=== PATIENT | female | born 1995 | race Caucasian/White ===

== ENCOUNTER 2023-05-31 11:20 | Outpatient (CLI) | payer BC ==
[2023-05-31 12:35] LABS: Protein/Creatinine Ratio,Urine 0.111
[2023-05-31 12:52] LABS: Appearance,Urine Cloudy (Clear); Bacteria,Urine Many /hpf; Bilirubin,Urine Negative (Negative); Blood,Urine Negative (Negative); Color,Urine Yellow; Glucose,Urine (UA) Negative (Negative); Ketones,Urine Negative (Negative); Leukocyte Esterase,Urine Large (Negative); Mucus,Urine Moderate /hpf; Nitrite,Urine Negative (Negative); PH, Urine 6.5 (5.0-8.0); Protein,Urine Trace (Negative); Specific Gravity,Urine 1.018 (1.001-1.035); Squamous Epithelial Cell,Urine 10 /hpf (0-4); Urobilinogen,Urine <2.0 mg/dL (<2.0); WBC,Urine 9 /hpf (0-5)
[2023-05-31 12:59] LABS: Basophils % (A) 0 %; Eosinophils # (A) 0.1 k/uL (0-0.7); Eosinophils % (A) 1 %; HCT 29.6 % (34.0-46.0); HGB 9.3 gm/dL (11.4-16.0); Hypochromasia Marked; Lymphocytes # (A) 1.7 k/uL (1.0-4.8); Lymphocytes % (A) 19 %; MCH 24.4 pg (25.0-35.0); MCHC 31.6 g/dL (31.0-37.0); MCV 77.3 fL (80.0-100.0); Mean Platelet Volume 7.8; Microcytosis Slight; Monocytes # (A) 0.5 k/uL (0-1.0); Monocytes % (A) 5 %; Neutrophils # (A) 6.7 k/uL (1.3-7.7); Neutrophils % (A) 74 %; Platelet Count 264 k/uL (150-450); Poikilocytosis Slight; RBC 3.83 m/uL (3.80-5.40); RDW 15.5 % (11.5-15.5)
[2023-05-31 13:16] LABS: ALT 16 U/L (4-34); AST 22 U/L (14-36); African American GFR (CKD) >90 (>60 ml/min/1.73 sqM); Blood Urea Nitrogen 6 mg/dL (7-17); LDH 230 U/L (120-246); Non-African American GFR(CKD) >90 (>60 ml/min/1.73 sqM); Uric Acid 5.5 mg/dL (3.7-7.4)
[2023-05-31 13:58] VITALS: BP 137/100; PULSE 108; RESP 16; TEMP 98.1
--- NOTE | 2023-07-05 17:54 | P.MSEPDOC ---
Presenting Problems - Arrival Data Date of Arrival on Unit: 05/31/23 Time of Arrival on Unit: 11:33 Mode of Transport: Ambulatory - Complaint OB-Reason for Admission/Chief Complaint: Headache, PIH, Elevated Blood Pressure Comment: pt arrived c/o headache yesterday and pt states her b/p was taken at home and elevated so pt called the office and was told to go to the Triage. PIH orders received from Dr Wright and serial B/P obtained Medical History - Information : 2 Para: 0 Term: 0 : 0 Abortions: Spontaneous or Elective: 0 Number of Living Children: 0 - Gestational Age Gestational Age by VILMA (wks/days): 36 Weeks and 6 Days Review of Systems - Review of Systems Constitutional: No problems Breast: No problems ENT: No problems Cardiovascular: No problems Respiratory: No problems Gastrointestinal: No problems Genitourinary: No problems Musculoskeletal: No problems Neurological: No problems Skin: No problems Vital Signs - Temperature Temperature: 98.1 F Temperature Source: Oral - Pulse Right Brachial Pulse Rate: 108 Pulse Assessment Method: Automatic Cuff - Respirations Respiratory Rate: 16 Oxygen Delivery Method: Room Air O2 Sat by Pulse Oximetry: 98 - Blood Pressure Right Arm Blood Pressure: 137/100 Blood Pressure Mean: 112 Blood Pressure Source: Automatic Cuff Medical Screen Scoring - Cervical Exam Dilation (cm): 1 Effacement (%): 50 Station: -3 Membranes: Intact - Uterine Contractions Frequency From (mins): 0 Intensity: Mild - Assessment - Baby A Baseline FHR: 130 Heart Rate - NICHD Category: Category I (Normal) NST: Reactive Physician Notification - Physician Notified Physician Notified Date: 05/31/23 Physician Notified Time: 11:47 Physician: dr wright New Order Received: Yes - Notification Comment Comment: serial b/p and PIH labs and u/a NST. SERIAL B/P 145/87 140/84, 1 . reactive NST and lab results back and WNL. Dr. Wright called with results and orders received to discharge hoe and have pt f/u with her in the office tomorrow Maternal Triage Index - Non-Urgent/Priority 4 Non-Urgent Priority 4: Yes Criteria Met for Priority 4: pt arrived c/o headache and states b/p was elevated at home Disposition - Disposition OB Disposition: Discharge to home Discharge Date: 05/31/23 Discharge Time: 13:38 I agree with the RN Medical Screening Exam: Yes Case reviewed; plan agreed upon as documented in EMR&OBIX.: Yes Diagnosis: RELATED CONDITIONS, UNSPECIFIED, SECOND TRIMESTER
== END 2023-05-31 13:38 | disposition home or self-care (01) ==
LOC: FBPOP 11:20
PROVIDERS: ATTEND Obstetrics & Gynecology Obstetrics
DX: O26.892 Other specified pregnancy related conditions, second trimester (principal); O13.4 Gestational [pregnancy-induced] hypertension without significant proteinuria, complicating childbirth; R51.9 Headache, unspecified; Z37.9 Outcome of delivery, unspecified; Z88.8 Allergy status to other drugs, medicaments and biological substances; Z3A.36 36 weeks gestation of pregnancy; Z79.82 Long term (current) use of aspirin
CPT/HCPCS: 59025; 81001; 82565; 82570; 83615; 84156; 84450; 84460; 84520; 84550; 85025; 99215

== ENCOUNTER 2023-06-14 05:54 | Inpatient (IN) | payer BC ==
[2023-06-14] MEDS ORDERED: TERBUTALINE 1 MG/ML VIAL SQ PRN (06:23)
[2023-06-14] MEDS ORDERED: OXYTOCIN 10 UNIT/ML 1 ML VIAL IM PRN ×2 (06:23→20:55)
[2023-06-14] MEDS ORDERED: miSOPROStoL 200 MCG TAB PO PRN ×2 (06:23→20:55)
[2023-06-14] MEDS ORDERED: TRANEXAMIC 1,000 MG/100ML-NACL 1,000 MG in EMPTY BAG 1 BAG IV PRN ×2 (06:23→20:55)
[2023-06-14] MEDS ORDERED: CARBOPROST TROMETHAMINE 250 MCG/ML 1 ML AMP IM PRN ×2 (06:23→20:55)
[2023-06-14] MEDS ORDERED: METHYLERGONOVINE 0.2 MG/ML 1 ML AMP IM PRN ×2 (06:23→20:55)
[2023-06-14] MEDS ORDERED: LIDOCAINE 0.5% (PF) 5 MG/ML (50 ML SDV) SQ PRN (06:23)
[2023-06-14] MEDS ORDERED: OXYTOCIN 30 UNITS/500 ML NS 30 UNIT in SALINE 1 500ML.BAG IV SCH ×2 (06:30→21:00)
[2023-06-14] MEDS: LACTATED RINGERS 1,000 ML IV SCH (06:35)
[2023-06-14 06:40] LABS: Anisocytosis Slight; Basophils # (A) 0.1 k/uL (0-0.2); Basophils % (A) 1 %; Eosinophils # (A) 0.1 k/uL (0-0.7); Eosinophils % (A) 1 %; HCT 30.4 % (34.0-46.0); HGB 8.7 gm/dL (11.4-16.0); Hypochromasia Moderate; Lymphocytes % (A) 30 %; MCH 21.1 pg (25.0-35.0); MCHC 28.5 g/dL (31.0-37.0); MCV 74.2 fL (80.0-100.0); Mean Platelet Volume 8.2; Microcytosis Slight; Monocytes # (A) 0.6 k/uL (0-1.0); Monocytes % (A) 6 %; Neutrophils % (A) 60 %; Platelet Count 289 k/uL (150-450); RDW 16.2 % (11.5-15.5)
[2023-06-14] MEDS ORDERED: SODIUM CHLORIDE 0.9% 100 ML BAG ONE (13:16)
[2023-06-14] MEDS ORDERED: fentaNYL (PF) 50 MCG/ML 5 ML AMP ONE (13:16)
[2023-06-14] MEDS ORDERED: ROPIVACAINE 5 MG/ML 20 ML AMPULE ONE (13:16)
[2023-06-14 20:12] LABS: Basophils % (A) 0 %; Eosinophils % (A) 0 %; HCT 32.5 % (34.0-46.0); HGB 9.9 gm/dL (11.4-16.0); Hypochromasia Marked; Lymphocytes # (A) 1.9 k/uL (1.0-4.8); Lymphocytes % (A) 13 %; MCH 23.1 pg (25.0-35.0); MCHC 30.3 g/dL (31.0-37.0); MCV 76.2 fL (80.0-100.0); Mean Platelet Volume 8.7; Microcytosis Slight; Monocytes # (A) 0.7 k/uL (0-1.0); Monocytes % (A) 5 %; Neutrophils # (A) 12.1 k/uL (1.3-7.7); Neutrophils % (A) 81 %; Platelet Count 253 k/uL (150-450); RBC 4.27 m/uL (3.80-5.40); RDW 15.8 % (11.5-15.5); WBC 14.9 k/uL (3.8-10.6)
[2023-06-14 20:37] LABS: ALT 16 U/L (4-34); AST 24 U/L (14-36); African American GFR (CKD) >90 (>60 ml/min/1.73 sqM); Blood Urea Nitrogen 11 mg/dL (7-17); LDH 235 U/L (120-246); Magnesium 1.4 mg/dL (1.6-2.3); Non-African American GFR(CKD) >90 (>60 ml/min/1.73 sqM); Uric Acid 5.9 mg/dL (3.7-7.4)
[2023-06-14 20:50] LABS: Appearance,Urine Clear (Clear); Bacteria,Urine Rare /hpf; Bilirubin,Urine Negative (Negative); Blood,Urine Moderate (Negative); Color,Urine Yellow; Glucose,Urine (UA) Negative (Negative); Ketones,Urine 2+ (Negative); Leukocyte Esterase,Urine Small (Negative); Mucus,Urine Occasional /hpf; Nitrite,Urine Negative (Negative); PH, Urine 6.5 (5.0-8.0); Protein,Urine 1+ (Negative); RBC,Urine 168 /hpf (0-5); Specific Gravity,Urine 1.017 (1.001-1.035); Squamous Epithelial Cell,Urine 3 /hpf (0-4); Transitional Epi Cells,Urine <1 /hpf (0-1); Urobilinogen,Urine <2.0 mg/dL (<2.0); WBC,Urine 7 /hpf (0-5)
[2023-06-14 20:54] LABS: INR 0.9 (<1.2); Partial Thromboplastin Time 22.3 sec (22.0-30.0); Prothrombin Time 9.6 sec (9.0-12.0)
[2023-06-14] MEDS ORDERED: CITRIC ACID-SODIUM CITRATE 15 ML CUP PO ONE (20:55)
[2023-06-14 20:56] LABS: Creatinine,Urine Random 175.3 mg/dL; Protein/Creatinine Ratio,Urine 0.331
[2023-06-14] MEDS ORDERED: CLINDAMYCIN 900 MG in DEXTROSE 5% IN WATER 50 ML IVPB ONE ×2 (21:04)
[2023-06-14] MEDS ORDERED: GENTAMICIN 400 MG in SODIUM CHLORIDE 0.9% 100 ML IVPB ONE (21:04)
[2023-06-14] MEDS ORDERED: MORPHINE SULFATE (PF) 0.3 MG/0.3 ML SYR ONE (21:17)
[2023-06-14] MEDS ORDERED: NALBUPHINE 10 MG/ML (10 ML MDV) ONE (21:17)
[2023-06-14] MEDS ORDERED: OXYTOCIN 30 UNITS/500 ML NS BAG IV ONE (21:17)
[2023-06-14] MEDS ORDERED: ONDANSETRON 4 MG/2 ML VIAL ONE (21:17)
[2023-06-14] MEDS ORDERED: ePHEDrine 50 MG/ML 1 ML VIAL ONE (21:17)
[2023-06-14] MEDS ORDERED: fentaNYL (PF) 50 MCG/ML 2 ML AMP ONE (21:17)
--- NOTE | 2023-06-14 21:56 | P.OP ---
Date of Procedure: 06/14/23 Preoperative Diagnosis: IUP at 38-6/7 weeks, arrest of descent, cervical swelling, suspected malposition Postoperative Diagnosis: Same Procedure(s) Performed: Primary low transverse section Anesthesia: epidural Surgeon: Shannan Wright Completion Supervisor #1: Karli Grayson Estimated Blood Loss (ml): 482 IV fluids (ml): 700 Urine output (ml): 50 Pathology: other (Placenta) Condition: stable Disposition: observation Indications for Procedure: 27-year-old 1 para 0 that was admitted this morning for induction of labor secondary to renal pyelectasis and mild ventriculomegaly. Patient was seen through maternal- medicine with no further recommendations. Patient was admitted and Pitocin induction of labor was begun. Patient underwent amniotomy clear fluid was obtained. Patient pressed to labor eventually becoming uncomfortable requesting epidural. Patient progressed to 7 stall in for a short bit eventually progressing to 9. On examination approximate half an hour after she was noted to be 9 cm cervix was noted to be significantly swollen and 6 cm in size. Anterior lip was noted to be significantly swollen. At that time malposition was discussed with patient and patient's . C- section was discussed questions were answered patient states understanding anesthesia was notified. Operative Findings: Viable female delivered at 2128, weight of 8 lbs. 8 oz., Apgars of 9 and 9 at one and 5 minutes respectively. Normal uterus tubes and ovaries were appreciated Description of Procedure: The patient was prepped and draped in the usual fashion after epidural anesthesia was found be adequate.. A Pfannenstiel incision was made and extended of the abdominal cavity without difficulty. The bladder peritoneum was elevated and incised and reflected distally. A 2 cm incision was made in the transverse plane of the lower uterine segment to enter the uterus at which time clear fluid was noted. The incision was extended in both directions bluntly. The head was encountered within the field and delivered up and through the incision where the nose and mouth were thoroughly suctioned. Remainder of the infant was delivered onto the surgical field where the cord was doubly clamped, cut, and the was passed for resuscitative measures with weight and Apgars as noted above. The placenta was delivered manually, intact, and was grossly normal with a grossly normal three-vessel cord. The uterus was exteriorized and the interior cavity of the uterus swept of any remaining placental and membranous fragments with a laparotomy sponge. The margins of the incision were grasped with Friend clamps and the incision closed in 2 layers. First layer was a running locking layer of 0 Vicryl from margin to margin followed by a second layer of imbricating 0 Vicryl from margin to margin. Any small points of bleeding were then made hemostatic with the Bovie. Once hemostasis was a chieved, the posterior cul-de-sac was suctioned with a guard and the uterine and ovarian findings are as noted above. The uterus was replaced within the abdominal cavity and the gutters swept of any remaining blood fluid or clot. The incision was again reexamined and hemostasis was noted to be excellent. Any small point of bleeding were made hemostatic with the Bovie. Once hemostasis was achieved the parietal peritoneum was loosely reapproximated. The layer of muscles were examined and made hemostatic with the Bovie. Attention was then turned to the fascia which was closed with 2 running stitches of 0 Vicryl proceeding from the lateral margins to the midpoint. The subcutaneous tissues were irrigated, made hemostatic with the Bovie, and reapproximated with a running stitch of 30 Vicryl. The skin was reapproximated with 4-0 Vicryl. Estimated blood loss for the case was approximately 482 mL. All sponge instrument and needle counts are correct. There were no complications. The patient tolerated the procedure well and proceeded to the recovery room in stable condition. Both mother and are resting comfortably in recovery.
--- NOTE | 2023-06-14 22:00 | P.HPOB ---
History of Present Illness H&P Date: 06/14/23 Chief Complaint: IUP 38 6/7, gestational HTN, ventriculomegaly 27 yo at 38 6/7 weeks that presents for induction of labor. She has been receiving routine care with myself, complicated by ventriculomegaly, mild, in addition renal pyelectasis, and marginal cord insertion was noted on ultrasound. Patient did see maternal medicine. Extensive counseling was completed, they offered MRI for which they declined. Continued growth ultrasounds were completed in the office with continued mild ventriculomegaly appreciated. Patient has had an occasional elevated blood pressure 140s over 80s, negative pre-eclampsia workup. Patient was then diagnosed with gestational hypertension. Negative pre-eclampsia workup. Patient denies signs or symptoms of preeclampsia today. She notes good movement denies contractions loss of fluid or vaginal bleeding. On bloodwork patient is a blood type of O+, rubella status nonimmune, hepatitis B surface antigen negative, HIV negative, RPR nonreactive, group beta strep culture was negative. Review of Systems Constitutional: Denies chills, Denies fatigue, Denies fever Ears, nose, mouth and throat: Denies headache Cardiovascular: Reports leg edema Respiratory: Denies dyspnea Gastrointestinal: Denies constipation, Denies diarrhea, Denies nausea, Denies vomiting Genitourinary: Reports Past Medical History Additional Past Medical History / Comment(s): occasional high blood pressures with History of Any Multi-Drug Resistant Organisms: None Reported Additional Past Surgical History / Comment(s): Right arm Past Anesthesia/Blood Transfusion Reactions: No Reported Reaction Past Psychological History: Anxiety, Depression Smoking Status: Never smoker Past Drug Use History: None Reported Medications and Allergies Home Medications Medication Instructions Recorded Confirmed Type Aspirin [Adult Low Dose Aspirin EC] 81 mg PO DAILY 05/31/23 06/14/23 History Ferrous Sulfate, Dried [Iron] 1 tab PO DAILY 05/31/23 06/14/23 History Vit No.179/Iron/Folic 1 tab PO DAILY 05/31/23 06/14/23 History [ Tablet] Allergies Allergy/AdvReac Type Severity Reaction Status Date / Time Cephalosporins Allergy Rash/Hives Verified 05/31/23 11:50 Exam Osteopathic Statement: *. No significant issues noted on an osteopathic structural exam other than those noted in the History and Physical/Consult. 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 heart tones are noted to be category 1 and she is harris every 5 minutes. This is a late entry from this morning. Results Result Diagrams: 06/14/23 18:58 06/14/23 18:58 Abnormal Lab Results - Last 24 Hours (Table) 06/14/23 Range/Units 06:21 Hgb 8.7 L (11.4-16.0) gm/dL Hct 30.4 L (34.0-46.0) % MCV 74.2 L (80.0-100.0) fL MCH 21.1 L (25.0-35.0) pg MCHC 28.5 L (31.0-37.0) g/dL RDW 16.2 H (11.5-15.5) % Assessment and Plan (1) Term Current Visit: Yes Status: Acute Code(s): Z34.90 - ENCNTR FOR SUPRVSN OF NORMAL , UNSP, UNSP TRIMESTER SNOMED Code(s): 42787811 (2) Gestational HTN Current Visit: Yes Status: Acute Code(s): O13.9 - GESTATIONAL HTN W/O SIGNIFICANT PROTEINURIA, UNSP TRIMESTER SNOMED Code(s): 54725397 (3) Ventriculomegaly of brain on ultrasound Current Visit: Yes Status: Acute Code(s): PVV1998 - SNOMED Code(s): 764899559657630 (4) Pyelectasis of fetus on ultrasound Current Visit: Yes Status: Acute Code(s): O35.EXX0 - MAT CARE OTHER ABNLT AND DAMAGE, ANOMAL, UNSP SNOMED Code(s): 827189011 (5) Marginal insertion of umbilical cord Current Visit: Yes Status: Acute Code(s): [id number] - SNOMED Code(s): 53235327 Plan: 27-year-old 1 para 0 at 38-6/7 weeks that presents for induction of labor secondary to gestational hypertension, marginal cord insertion, mild ventriculomegaly, renal pyelectasis Patient was counseled on options for analgesia including Stadol, nitrous, epidural. Patient states understanding and will consider. Pitocin augmentation is begun per hospital protocol. MFM consult on chart for pediatric review.
[2023-06-14] MEDS ORDERED: diphenhydrAMINE 25 MG CAP PO PRN (22:09)
[2023-06-14] MEDS ORDERED: ZOLPIDEM 5 MG TAB PO PRN (22:09)
[2023-06-14] MEDS ORDERED: ONDANSETRON 4 MG/2 ML VIAL IVP PRN (22:09)
[2023-06-14] MEDS ORDERED: METOCLOPRAMIDE 5 MG/ML 2 ML VIAL IVP PRN (22:09)
[2023-06-14] MEDS ORDERED: diphenhydrAMINE 50 MG CAP PO PRN (22:09)
[2023-06-14] MEDS ORDERED: diphenhydrAMINE 50 MG/ML 1 ML VIAL IVP PRN ×2 (22:09)
[2023-06-14] MEDS ORDERED: NALOXONE 0.4 MG/ML 1 ML VIAL IV PRN (22:09)
[2023-06-14] MEDS ORDERED: SIMETHICONE 80 MG CHEWABLE PO PRN (22:09)
[2023-06-14] MEDS: ACETAMINOPHEN IV (For NPO) 1,000 MG in EMPTY BAG 1 BAG IVPB SCH (22:47)
[2023-06-15] MEDS: IBUPROFEN IV 800 MG in SODIUM CHLORIDE 0.9% 250 ML IV SCH ×4 (01:34→17:03)
[2023-06-15] MEDS: LACTATED RINGERS 1,000 ML IV SCH ×5 (03:56→17:02)
[2023-06-15] MEDS: ACETAMINOPHEN TAB 500 MG TAB PO SCH ×4 (03:58→17:47)
[2023-06-15] MEDS: IBUPROFEN 600 MG TAB PO SCH ×4 (03:59→20:32)
[2023-06-15] MEDS: ACETAMINOPHEN IV (For NPO) 1,000 MG in EMPTY BAG 1 BAG IVPB SCH (05:05)
[2023-06-15 05:12] LABS: Anisocytosis Slight; Basophils % (A) 0 %; Eosinophils # (A) 0.1 k/uL (0-0.7); Eosinophils % (A) 1 %; HCT 28.5 % (34.0-46.0); HGB 8.8 gm/dL (11.4-16.0); Hypochromasia Marked; Lymphocytes # (A) 1.7 k/uL (1.0-4.8); Lymphocytes % (A) 11 %; MCH 23.5 pg (25.0-35.0); MCHC 30.9 g/dL (31.0-37.0); MCV 76.2 fL (80.0-100.0); Mean Platelet Volume 8.8; Microcytosis Slight; Monocytes # (A) 0.7 k/uL (0-1.0); Monocytes % (A) 5 %; Neutrophils # (A) 12.9 k/uL (1.3-7.7); Neutrophils % (A) 83 %; Platelet Count 255 k/uL (150-450); RBC 3.74 m/uL (3.80-5.40); RDW 16.3 % (11.5-15.5); WBC 15.6 k/uL (3.8-10.6)
[2023-06-15] MEDS: PRENATAL VIT-IRON-FOLIC ACID 1 EACH TABLET PO SCH (08:41)
[2023-06-15] MEDS: SENNOSIDES-DOCUSATE SODIUM 1 EACH TAB PO SCH ×2 (08:41→20:33)
--- NOTE | 2023-06-15 10:05 | P.PNOBGPC ---
Subjective - Subjective Principal diagnosis: POD 1 LTCS, cervical swelling and arrest of descent Interval history: Patient is doing well this am. she states pain is well controlled. she denies nausea or vomiting, and is tolerating a regular diet. locia is minimal. she is Breast feeding. BP were good overnight and this am. she did have some slightly elevated BP throughout labor, no s/s of pre eclampsia. she has had a small spontaneous void since gabriel was discontinued around 5 am. Patient reports: Reports appetite normal, Reports voiding normally, Reports pain well controlled, Reports ambulating normally [place]: doing well Objective - Vital Signs Latest vital signs: Vital Signs Temp Pulse Resp BP Pulse Ox 06/15/23 08:00 97.8 F 88 16 127/86 06/15/23 04:00 98.0 F 91 15 115/75 98 06/15/23 00:00 97.3 F L 111 H 16 124/58 100 06/14/23 23:30 111 H 16 148/64 97 06/14/23 23:00 97.3 F L 108 H 16 151/88 100 06/14/23 22:45 98.3 F 127 H 16 147/65 99 06/14/23 22:30 98.3 F 123 H 16 141/82 98 06/14/23 22:15 98.8 F 122 H 16 118/51 99 06/14/23 22:00 98.8 F 111 H 16 156/82 99 Intake and Output 06/14/23 06/15/23 06/15/23 22:59 06:59 14:59 Intake Total 960 960 Output Total 483 1137 300 Balance 477 -177 -300 Intake: Oral 960 960 Output: Urine 900 300 Uretheral (Gabriel) 400 Estimated Blood Loss 483 Output, Quantitative 237 Blood Loss Other: Voiding Method Indwelling Catheter Indwelling Catheter - Exam Extremities: Present: normal, edema Abdomen: Present: normal appearance Incision: Present: normal, intact Uterus: Present: normal, firm - Labs Labs: Abnormal Lab Results - Last 24 Hours (Table) 06/14/23 06/14/23 06/14/23 Range/Units 18:58 18:58 18:58 WBC 14.9 H (3.8-10.6) k/uL RBC (3.80-5.40) m/uL Hgb 9.9 L (11.4-16.0) gm/dL Hct 32.5 L (34.0-46.0) % MCV 76.2 L (80.0-100.0) fL MCH 23.1 L (25.0-35.0) pg MCHC 30.3 L (31.0-37.0) g/dL RDW 15.8 H (11.5-15.5) % Neutrophils # 12.1 H (1.3-7.7) k/uL Fibrinogen 536 H (200-500) mg/dL Magnesium 1.4 L (1.6-2.3) mg/dL Urine Protein (Negative) Urine Ketones (Negative) Urine Blood (Negative) Ur Leukocyte Esterase (Negative) Urine RBC (0-5) /hpf Urine WBC (0-5) /hpf Urine Bacteria (None) /hpf Urine Mucus (None) /hpf 06/14/23 06/15/23 Range/Units 19:39 04:58 WBC 15.6 H (3.8-10.6) k/uL RBC 3.74 L (3.80-5.40) m/uL Hgb 8.8 L (11.4-16.0) gm/dL Hct 28.5 L (34.0-46.0) % MCV 76.2 L (80.0-100.0) fL MCH 23.5 L (25.0-35.0) pg MCHC 30.9 L (31.0-37.0) g/dL RDW 16.3 H (11.5-15.5) % Neutrophils # 12.9 H (1.3-7.7) k/uL Fibrinogen (200-500) mg/dL Magnesium (1.6-2.3) mg/dL Urine Protein 1+ H (Negative) Urine Ketones 2+ H (Negative) Urine Blood Moderate H (Negative) Ur Leukocyte Esterase Small H (Negative) Urine RBC 168 H (0-5) /hpf Urine WBC 7 H (0-5) /hpf Urine Bacteria Rare H (None) /hpf Urine Mucus Occasional H (None) /hpf Assessment and Plan (1) Term Current Visit: Yes Status: Acute Code(s): Z34.90 - ENCNTR FOR SUPRVSN OF NORMAL , UNSP, UNSP TRIMESTER SNOMED Code(s): 35584296 (2) Gestational HTN Current Visit: Yes Status: Acute Code(s): O13.9 - GESTATIONAL HTN W/O SIGNIFICANT PROTEINURIA, UNSP TRIMESTER SNOMED Code(s): 50791178 (3) Ventriculomegaly of brain on ultrasound Current Visit: Yes Status: Acute Code(s): VRT1887 - SNOMED Code(s): 259170507541545 (4) Pyelectasis of fetus on ultrasound Current Visit: Yes Status: Acute Code(s): O35.EXX0 - MAT CARE OTHER ABNLT AND DAMAGE, ANOMAL, UNSP SNOMED Code(s): 231668324 (5) Marginal insertion of umbilical cord Current Visit: Yes Status: Acute Code(s): [id number] - SNOMED Code(s): 66473724 Plan: 27 yo G1 now P1 s/p LTCS on 06/14. she is doing well postoperatively, plan to continue routine post operative care. will continue to monitor BP as well
--- NOTE | 2023-06-15 10:08 | P.PN ---
Progress Note - Text Progress Note Date: 06/15/23 Postoperative day 1 status post section under epidural anesthesia and epidural Duramorph for postoperative analgesia.The patient is doing well, there is mild generalized skin itching. There are no other anesthesia related complications. The patient denies any paresthesia or weakness in the lower extremities. Patient denies any headache. Further management as per the patient primary team.
[2023-06-15] MEDS ORDERED: MEASLES-MUMPS-RUBELLA VACC/PF 12,500 UNIT/0.5 ML VIAL SQ ONE (12:00)
[2023-06-16] MEDS: ACETAMINOPHEN TAB 500 MG TAB PO SCH ×2 (00:04→05:53)
[2023-06-16] MEDS: IBUPROFEN 600 MG TAB PO SCH (04:23)
[2023-06-16 08:13] VITALS: RESP 14; TEMP 98.4
[2023-06-16] MEDS: PRENATAL VIT-IRON-FOLIC ACID 1 EACH TABLET PO SCH (08:41)
[2023-06-16 09:09] VITALS: BP 135/88; PULSE 96
--- NOTE | 2023-06-16 09:56 | P.DS ---
Providers Date of admission: 06/14/23 05:54 Expected date of discharge: 06/16/23 Attending physician: Shannan Wright Primary care physician: Rangel Pascual - Discharge Diagnosis(es) (1) Term Current Visit: Yes Status: Acute (2) Gestational HTN Current Visit: Yes Status: Acute (3) Ventriculomegaly of brain on ultrasound Current Visit: Yes Status: Acute (4) Pyelectasis of fetus on ultrasound Current Visit: Yes Status: Acute (5) Marginal insertion of umbilical cord Current Visit: Yes Status: Acute Hospital Course: This is a 27-year-old 1 para 0 at 38-6/7 weeks that presented to labor and delivery for induction of labor secondary to gestational hypertension, ventriculomegaly, renal pyelectasis. Patient had been receiving routine care with myself completed by ventriculomegaly mild in nature and renal pyelectasis. Of note a marginal cord insertion was appreciated on 20 week ultrasound in addition. Patient did see maternal medicine. Excessive counseling was completed they did offer MRI given the ventriculomegaly which she declined. Growth ultrasounds were completed in my office with continued mild ventricular medically appreciated. Patient did have noted elevated blood pressures of 140s over 80s on occasion, negative preeclampsia workup. Patient denied signs of preeclampsia throughout . Patient was admitted and Pitocin induction of labor was begun. Patient made progress thro ugh labor eventually becoming uncomfortable requesting epidural placement. Epidural was placed by the anesthesia without difficulty. Patient made slow progress through the broad and was noted to be 9 cm. Approximate 1 hour later patient was examined and cervix was noted to be significantly swollen with malposition suspected. Exam was discussed with patient and patient's . Decision was made at that time for primary secondary to arrest of descent, cervical swelling and suspected malpresentation. Patient was taken back for primary versus was completed without difficulty. For full details on the please see the operative report. Patient delivered a viable female at 2128, weight of 8 lbs. 8 oz. Patient has done well post operatively. Patient initially had some elevated blood pressures throughout labor that may have been secondary to discomfort. Patient's post day 1 blood pressures were all normal in nature. Patient is counseled on gestational hypertension diagnosis and is urged to check her blood pressures at home. Patient denies signs or symptoms of pre-Anuel. Patient states her lochia is minimal to moderate. She is breast-feeding without difficulty. She states her pain is well-controlled. She denies nausea or vomiting and is tolerating a regular diet. Patient Condition at Discharge: Good Plan - Discharge Summary New Discharge Prescriptions: No Action Ferrous Sulfate, Dried [Iron] 1 tab PO DAILY Aspirin [Adult Low Dose Aspirin EC] 81 mg PO DAILY Vit No.179/Iron/Folic [ Tablet] 1 tab PO DAILY Discharge Medication List Aspirin [Adult Low Dose Aspirin EC] 81 mg PO DAILY 05/31/23 [History] Ferrous Sulfate, Dried [Iron] 1 tab PO DAILY 05/31/23 [History] Vit No.179/Iron/Folic [ Tablet] 1 tab PO DAILY 05/31/23 [History] Follow up Appointment(s)/Referral(s): Shannan Wright DO [Doctor of Osteopathic Medicine] - 1 Week Patient Instructions/Handouts: (DC), (GEN) Activity/Diet/Wound Care/Special Instructions: Postoperative instructions are discussed with patient she is urged to call the office to make a routine blood pressure check for 1 week. Given her blood pressures through labor and one elevation during with like close follow-up for blood pressure management if necessary. [id number] ibuprofen and Tylenol are discussed for pain control. Discharge Disposition: HOME SELF-CARE
== END 2023-06-16 15:03 | disposition home or self-care (01) | DRG 788 ==
LOC: 4FBP 05:54
PROVIDERS: ADMIT Obstetrics & Gynecology Obstetrics; ATTEND Obstetrics & Gynecology Obstetrics
DX: O13.4 Gestational [pregnancy-induced] hypertension without significant proteinuria, complicating childbirth (principal); O35.09X0 Maternal care for (suspected) other central nervous system malformation or damage in fetus, not applicable or unspecified; O32.9XX0 Maternal care for malpresentation of fetus, unspecified, not applicable or unspecified; O62.1 Secondary uterine inertia; O43.193 Other malformation of placenta, third trimester; O35.EXX0 Maternal care for other (suspected) fetal abnormality and damage, fetal genitourinary anomalies, not applicable or unspecified; O99.344 Other mental disorders complicating childbirth; F32.A Depression, unspecified; F41.9 Anxiety disorder, unspecified; Z23 Encounter for immunization; Z79.82 Long term (current) use of aspirin; Z28.310 Unvaccinated for COVID-19; Z3A.38 38 weeks gestation of pregnancy; Z37.0 Single live birth
CPT/HCPCS: 81001; 82565; 82570; 83615; 83735; 84156; 84450; 84460; 84520; 84550; 85025; 85384; 85610; 85730; 86850; 86900; 86901; 90471; 90707